=== PATIENT | male | born 1965 | race Caucasian/White ===

== ENCOUNTER 2018-10-18 05:59 | Day surgery (SDC) | payer OTHER ==
[~2018-10-18 05:59] MED LIST: Buffered Lidocaine 1% SYRIN* 1 ML/SYRINGE INTRADERM ONE
[2018-10-18] MEDS ORDERED: Lactated Ringers 1000 ML Bag* 1,000 ML IV SCH (06:00)
[2018-10-18] MEDS ORDERED: Sodium Citrate/Citric Acid* 15 ML UDC PO ONE (06:00)
[2018-10-18] MEDS ORDERED: ceFAZolin 2 GM in NS PREMIX(*) 2 GM/100 ML BAG IVPB ONE (06:23)
[2018-10-18] MEDS ORDERED: Buffered Lidocaine 1% SYRIN* 1 ML/SYRINGE INTRADERM ONE (06:23)
[2018-10-18] MEDS ORDERED: Sodium Citrate/Citric Acid* 15 ML UDC ONE (06:41)
[2018-10-18] MEDS ORDERED: Bupivacaine 0.5%* 50 ML VIAL ONE (06:54)
[2018-10-18] MEDS ORDERED: Lidocaine 2% PF* 10 ML AMP ONE ×2 (07:11→07:57)
[2018-10-18] MEDS ORDERED: Midazolam* 1 MG/ML 5 ML VIAL (5 MG) ONE (07:22)
[2018-10-18] MEDS ORDERED: fentaNYL* 50 MCG/ML 2 ML VIAL (100 MCG VIAL) ONE (07:22)
[2018-10-18] MEDS ORDERED: Naloxone* 0.4 MG/ML 1 ML VIAL IV PRN (07:33)
[2018-10-18] MEDS ORDERED: Propofol* 10 MG/ML 20 ML BTL ONE (07:46)
[2018-10-18] MEDS ORDERED: Lidocaine 2% PF * 5 ML VIAL ONE (07:46)
[2018-10-18 08:45] VITALS: BP 116/74
--- NOTE | 2018-10-18 22:10 | OP ---
DATE OF OPERATION: 10/18/18 - [facility] DATE OF : 61 ATTENDING SURGEON: Dima Posadas MD HOME DELIVERY DRIVER: Abhijit Ibanez PA-C. PRE-OP DIAGNOSIS: Painful metatarsalgia, right second metatarsal head. POST-OP DIAGNOSIS: Painful metatarsalgia, right second metatarsal head. OPERATIVE PROCEDURE: Shannan osteotomy, right second metatarsal. DESCRIPTION OF PROCEDURE: The patient was taken to the operating room where a longitudinal incision was made just lateral to the second MTP. Extensor tendons were retracted medially. We divided the metatarsal neck area with the sagittal saw making a double cut distal dorsal to proximal plantar. 2 mm of bone removed as a wafer. We then moved the metatarsal head proximally in line with the metatarsal shaft pain as dorsal to plantar with a 13 mm twist-off screw. Good fixation and alignment was obtained. We irrigated thoroughly, closing with Monocryl and nylon sutures and a compression dressing applied. [id number] #: [id number] MTDD
== END 2018-10-18 17:39 | disposition home or self-care (01) ==
LOC: OR 05:59
PROVIDERS: ATTEND Orthopaedic Surgery
DX: M77.41 Metatarsalgia, right foot (principal)
CPT/HCPCS: A9270-GY; C1713; J0690; J2001; J2250; J2704; J3010; J3490